=== PATIENT | male | born 1990 | race Caucasian/White ===

== ENCOUNTER 2016-06-11 18:04 | Emergency (ER) | payer OTHER ==
[~2016-06-11] VITALS: Ht 180.3 cm; Wt 97.5 kg
[2016-06-11] MEDS ORDERED: ONDA4TAB10 SL (19:14)
[2016-06-11] MEDS ORDERED: MORP15TA PO (19:14)
[2016-06-11 19:15] VITALS: BP 136/73
[2016-06-11] MEDS ORDERED: ONDANSETRON ODT 4 MG TAB.RAPDIS. PO ONE (19:15)
[2016-06-11] MEDS ORDERED: HYDROMORPHONE 2 MG/ML VIAL. IM ONE (19:15)
--- NOTE | 2016-06-11 19:15 | PHYS DOC ---
Past Medical History Past Medical History: No Pertinent History Past Surgical History: No Surgical History Additional Information: uses chewing tobacco Alcohol Use: Rarely Drug Use: None Adult General Chief Complaint Chief Complaint: ABDOMINAL PAIN HPI HPI 26-year-old male presenting to the emergency department with right upper quadrant abdominal pain which is been intermittent for 5 years. He reports being in the [employer] previously and having a workup of the right upper quadrant including ultrasound and CT which was nonconclusive. The physicians who are taking care of him felt that he had symptomatic cholelithiasis probably but needed a HIDA scan to confirm. He never received his HIDA scan. He just recently switched jobs and is obtaining civilian insurance and presents today with what he describes as "a gallbladder attack". He reports sharp pain in the right upper quadrant that is nonradiating moderate intermittent and worse with fatty foods. He denies fevers chills or jaundice skin. Review of systems is negative for chest pain shortness of breath. Nausea present without vomiting. He denies fevers or chills. All other review of systems is negative unless otherwise noted in history of present illness. Review of Systems Review of Systems SEE ABOVE. Allergies Allergies Allergies Coded Allergies Type Severity Reaction Last Updated Verified No Known Drug Allergies 06/11/16 No Physical Exam Physical Exam Constitutional: Well developed, well nourished, no acute distress, non-toxic appearance. HENT: Normocephalic, atraumatic, bilateral external ears normal, oropharynx moist, no oral exudates, nose normal. [] Eyes: PERRLA, EOMI, conjunctiva normal, no discharge. [] Neck: Normal range of motion, no tenderness, supple, no stridor. Cardiovascular:Heart rate regular rhythm, no murmur [] Lungs & Thorax: Bilateral breath sounds clear to auscultation Abdomen: Abdomen is soft and minimally tender in the right upper quadrant. Patient positive as when he takes a deep breath and with pressure to the right upper quadrant. No rebound tenderness or guarding is present. Negative McBurney' s point. Skin: Warm, dry, no erythema, no rash. Back: No tenderness, no CVA tenderness. [] Extremities: No tenderness, no cyanosis, no clubbing, ROM intact, no edema. [] Neurologic: Alert and oriented X 3, normal motor function, normal sensory function, no focal deficits noted. Psychologic: Affect normal, judgement normal, mood normal. [] Current Patient Data Vital Signs Vital Signs Date Time Temp Pulse Resp B/P Pulse Ox O2 Delivery O2 Flow Rate FiO2 06/11/16 18:26 98.8 78 16 141/77 97 Room Air 98.8 EKG EKG [] Radiology/Procedures Radiology/Procedures [] Course & Med Decision Making Course & Med Decision Making Pertinent Labs and Imaging studies reviewed. (See chart for details) [] 26-year-old male presenting to the emergency department today with right upper quadrant abdominal pain. Patient's symptomatology consistent with symptomatic cholelithiasis. Patient is afebrile in the exam room with normal vital signs. Patient is well-appearing abdomen exam shows minimal tenderness in the right upper quadrant. Patient's pain had resolved by and large by my evaluation. He mainly was looking for symptomatic control along with referral to PCP and surgeon. I felt this to be reasonable. Patient's mother here with him today comfortable plan. Patient was given intramuscular hydromorphone and Zofran. [id number] discharge instructions given including return precautions for signs and symptoms of acute cholecystitis which I explained in plain language the patient. He demonstrated verbal understanding and was subsequently discharged home to follow up with our PCP and surgeon referral. Dragon Disclaimer Dragon Disclaimer This electronic medical record was generated, in whole or in part, using a voice recognition dictation system. Departure Departure Impression: Primary Impression: Right upper quadrant abdominal pain Disposition: 01 HOME, SELF-CARE Condition: STABLE Referrals: NO PCP (PCP) NEAL BELCHER MD, THOMAS W MD Patient Instructions: Cholelithiasis, [id number], Gallbladder Nuclear Scanning Additional Instructions: Thank you for allowing us to participate in your care today. Followup with your primary care physician in 3 days if your symptoms do not improve. If you do not have a primary care provider you can ask for a list of our primary care providers. Return to the emergency department you have any new or concerning findings. This should be evaluated by the primary care physician and any necessary consulting services for continued management within a few days after discharge. Return to emergency room if you have any new or concerning symptoms including but not limited to fever, chills, nausea, vomiting, intractable pain, any new rashes, chest pain, shortness of air, uncontrolled bleeding, difficulty breathing, and/or vision loss. You may have been prescribed medication that can change in your level of thinking and ability to operate machinery. These medications include hydrocodone and Ativan. Also, Benadryl has been known to do this as well. Be sure to check with your pharmacist and ask if the medications you've prescribed can affect your level of consciousness. I recommend not operating heavy machinery or driving while on medication such as these. Scripts Ondansetron (Zofran Odt)4 Mg Tab.rapdis1 Tab SL PRN Q8HRS PRN NAUSEA #6 TAB Prov:SHEMAR CHI MD 06/11/16 Morphine Sulfate 15 Mg Tablet1 Tab PO PRN Q6-8HRS PRN SEVERE PAIN #8 TAB Prov:SHEMAR CHI MD 06/11/16 SHEMAR CHI MD Jun 11, 2016 19:15
== END 2016-06-11 19:26 | disposition home or self-care (01) ==
LOC: ER 18:04
DX: R10.11 Right upper quadrant pain (principal); R11.0 Nausea; F17.220 Nicotine dependence, chewing tobacco, uncomplicated
CPT/HCPCS: 96372; 99283; J1170; Q0162

== ENCOUNTER → 2016-06-19 | Outpatient (CLI) | payer OTHER ==
[2016-06-11 19:15] VITALS: BP 136/73
[~2016-06-19] VITALS: Ht 182.9 cm; Wt 97.5 kg
[~2016-06-19] MED LIST: MORP15TA PO; ONDA4TAB10 SL; OXYC-323 PO; SINCALIDE 1.95 MCG in IV NORMAL SALINE 50ML 30 ML IV ONE
--- NOTE | 2016-06-19 12:21 | RAD ---
Hepatobiliary scan with gallbladder ejection fraction calculation 06/19/2016 Clinical History: Right upper quadrant abdominal pain.. Technique: After the intravenous administration of 5.5 mCi of Technetium 99m Choletec, imaging of the right upper quadrant of the abdomen was performed using the gamma camera for 60 minutes. 1.95 mcg of CCK was then infused intravenously over 30 minutes. Continued imaging of the right upper quadrant abdomen was performed. A gallbladder ejection fraction was calculated. Findings: Normal uptake and excretion of the radionuclide by the liver is seen. There is no evidence of cystic or common bile duct obstruction. The gallbladder is within normal limits in size and configuration. During the infusion CCK minimal emptying of the gallbladder is seen. The gallbladder ejection fraction is 25.6% which is diminished. These findings are consistent with biliary dyskinesia. Impression: Findings consistent with biliary dyskinesia.
== END | disposition home or self-care (01) ==
LOC: NM 16:10
PROVIDERS: ATTEND Surgery
DX: K82.8 Other specified diseases of gallbladder (principal)
CPT/HCPCS: 78226; 96374; 96375; A9537; J2805

== ENCOUNTER 2016-07-17 11:52 | Day surgery (SDC) | payer OTHER ==
[~2016-07-17] VITALS: Ht 182.9 cm; Wt 97.5 kg
[~2016-07-17 11:52] MED LIST changes: +BUPIVAC MPF-EPI 0.5%-1:200000 30 ML VIAL. ONE; +HYDROmorphone 2 MG/ML VIAL IV PRN; +IOHEXOL 300 MG/ML 50 ML VIAL. ONE; +IV RINGERS,LACTATED 1000ML 1,000 ML IV SCH; +LIDOCAINE 1% 1 ML SYRINGE. ID PRN; +MORPHINE SULFATE 2 MG/ML DISP.SYRIN. IV PRN; +ONDANSETRON PF 4 MG/2 ML VIAL. IV PRN; -OXYC-323 PO; +PROCHLORPERAZINE 10 MG/2 ML VIAL. IV PRN; -SINCALIDE 1.95 MCG in IV NORMAL SALINE 50ML 30 ML IV ONE; +SURGICEL HEMOSTAT 4X8 EACH. ONE; +fentaNYL PF VIAL 100 MCG/2 ML VIAL IV PRN
[2016-07-17] MEDS ORDERED: ONDANSETRON PF 4 MG/2 ML VIAL. ONE (12:19)
[2016-07-17] MEDS ORDERED: FAMOTIDINE 20 MG/2 ML VIAL ONE (12:19)
[2016-07-17] MEDS ORDERED: LIDOCAINE 2% 100 MG/5 ML SYRINGE. ONE (12:19)
[2016-07-17] MEDS ORDERED: DEXAMETHASONE SOD PHOS 20 MG/5 ML VIAL. ONE (12:19)
[2016-07-17] MEDS ORDERED: PROPOFOL 20 ML IV ONE (12:19)
[2016-07-17] MEDS ORDERED: fentaNYL PF VIAL 100 MCG/2 ML VIAL ONE ×2 (12:20→14:29)
[2016-07-17] MEDS ORDERED: MIDAZOLAM HCL/PF 2 MG/2 ML VIAL. ONE (12:20)
[2016-07-17] MEDS ORDERED: ACETAMINOPHEN INTRAVENOUS 100 ML IV ONE (12:24)
[2016-07-17] MEDS ORDERED: ROCURONIUM 50 MG/5 ML VIAL. ONE (12:55)
[2016-07-17] MEDS ORDERED: GLYCOPYRROLATE 1 MG/5 ML VIAL. ONE (14:33)
[2016-07-17] MEDS ORDERED: NEOSTIGMINE METHYLSULFATE 5 MG/5 ML SYRINGE. ONE (14:33)
[2016-07-17] MEDS ORDERED: SEVOFLURANE 31 TO 60 MINUTES. IH ONE (14:36)
--- NOTE | 2016-07-17 14:45 | PDOC ---
BRIEF OPERATIVE NOTE Date: July 17, 2016 Pre-Op Diagnosis Biliary dyskenesia Post-Op Diagnosis Same Procedure Performed L/S Cholecystectomy Surgeon Brendan Anesthesia Type: General Blood Loss 10ml Specimens Obtained Gallbladder Findings as above Complications None DUKE SINGH MD July 17, 2016 14:45
--- NOTE | 2016-07-17 14:46 | DISCH ---
DISCHARGE INSTRUCTIONS Condition on Discharge Condition on Discharge: Stable Activity After Discharge Activity Instructions for Disc: Avoid exertion Other activity instructions: No lifting >20lbs for 2 weeks Diet after Discharge Diet after Discharge: Low Fat Wound Incision Care Other wound/incision instructi: Maria Dolores shower in 24 hours Contacting the after DC Call your doctor for: If your condition worsens Follow-Up Follow up with: Dr Singh in 1 week DUKE SINGH MD July 17, 2016 14:46
[2016-07-17] MEDS ORDERED: OXYC-323 PO (15:20)
[2016-07-17] MEDS ORDERED: oxyCODONE/APAP 5/325 1 TAB TABLET PO PRN (15:30)
[2016-07-17 16:06] VITALS: BP 116/69
--- NOTE | 2016-07-17 19:23 | OP ---
DATE OF SURGERY: 07/17/2016 PREOPERATIVE DIAGNOSIS: Biliary dyskinesia. POSTOPERATIVE DIAGNOSIS: Biliary dyskinesia. PROCEDURE: Laparoscopic cholecystectomy. SURGEON: Mark Singh M.D. INDICATIONS: The patient was 26-year-old gentleman who has had right upper quadrant abdominal pain and postprandial nausea. Ultrasound did not show stones, but a HIDA scan did show an ejection fraction of less than 30% with recurrence of the symptoms at the time of HIDA scan. Procedure of laparoscopic cholecystectomy was explained to the patient in detail. Risks and benefits were also discussed including bleeding, infection, injury to intra-abdominal contents, and possibly sustaining further open operations. Alternatives of this procedure were also discussed with the patient who seemed to understand and gave verbal and written consent to have the procedure performed. DESCRIPTION OF PROCEDURE: The patient was taken to the Operating Room and placed in the supine position. General anesthesia was initiated. Once the patient was asleep and intubated, his abdomen was prepped and draped in usual sterile fashion using ChloraPrep. An area just below the umbilicus was injected with 0.25% Marcaine with epinephrine. Incision was made with an 11-blade scalpel, and a Veress needle was placed within the abdomen. Pneumoperitoneum was achieved. Once this was completed, an 11-mm port was placed, and a 5-mm camera was placed within the abdomen. Abdomen was inspected. No other abnormalities were noted. At this point, three 5-mm ports were then placed under direct visualization, one in the epigastrium, 2 in the right upper quadrant. The dome of the gallbladder was grasped and retracted cephalad. Infundibulum of the gallbladder was grasped and retracted laterally exposing the triangle of Calot. Adherent tissues of the triangle were taken down exposing the cystic duct and cystic artery. Both were doubly clipped and transected. The gallbladder was taken off the liver with hook electrocautery, placed in EndoCatch bag and removed from the umbilicus. Right upper quadrant was irrigated and suctioned dry. Hemostasis seemed to be appropriate, and the pneumoperitoneum was reduced. All ports were removed. Fascial defect at the umbilicus was closed with [id number]-ti-rkyyl 0 Vicryl suture, and the skin was reapproximated at all port sites with 4-0 subcuticular Monocryl. Mastisol, Steri-Strips, and Band-Aids were applied as dressings. The patient was awakened, extubated in the operating room, taken to recovery in stable condition. All sponge, instrument counts were listed as correct. Estimated blood loss was 5 mL. MARK SINGH MD DR: PHILL/paul JOB#: [id number] / [id number]
--- NOTE | 2016-07-20 12:29 | PATHOLOGY ---
PATHOLOGY REPORT * * * * * * * * FINAL DIAGNOSIS: Gallbladder, cholecystectomy: - Chronic cholecystitis. - Cholesterolosis. - No gallstones present. (SKM:amy; d/t: 07/20/2016) REPORT ELECTRONICALLY SIGNED BY: Juan Luis Vásquez M.D. DATE/TIME: 07/20/2016 12:28 * * * * * * * * GROSS PATHOLOGY: Received in formalin labeled "Julian Islas, gallbladder and contents," is a 7.4 x 2.9 x 2.5 cm, intact gallbladder with green luong serosal surfaces. Opening the gallbladder reveals velvety and bile-stained mucosa with mild, diffuse cholesterolosis and an average wall thickness of 0.1 cm. Calculi are not present and no masses are noted grossly. Supervisor Sanding sections from the body and fundus are submitted along with the proximal margin in cassette A1. (KAH; 07/19/2016) INITIAL CPT CODE(S): A; 69916 Professional services performed [place] [facility] [address] Technical services performed by [facility] at [address] [place] [address]. SPECIMEN(S) RECEIVED: A.Gallbladder and contents CLINICAL HISTORY: Biliary dyskinesia PATIENT: JULIAN ISLAS /AGE: 1101/11/1990 (Age: 26) PATIENT #: [id number] ALT CASE #: SPECIMEN COLLECTION DATE: 07/17/2016 SPECIMEN RECEIVED DATE: 07/18/2016 [facility] - [address] [place] [address] - PHONE: [phone] * * * END OF REPORT * * *
== END 2016-07-17 16:09 | disposition home or self-care (01) ==
LOC: SURG 11:52
PROVIDERS: ATTEND Surgery
DX: K82.8 Other specified diseases of gallbladder (principal); E66.9 Obesity, unspecified; Z87.01 Personal history of pneumonia (recurrent); Z72.89 Other problems related to lifestyle; Z87.39 Personal history of other diseases of the musculoskeletal system and connective tissue; Z87.891 Personal history of nicotine dependence
CPT/HCPCS: 47562; C1782; J0131; J0690; J1100; J2250; J2405; J2704; J2710; J3010; J3490; J7030; J7120; S0028; 88304; J0780; Q9967